=== PATIENT | male | born 1940 | race African-American/Black ===

== ENCOUNTER 2016-12-15 14:25 | Inpatient (IN) | payer MEDICARE, MEDICAID ==
[~2016-12-15] VITALS: Ht 180.3 cm; Wt 81.6 kg
[2016-12-15] MEDS ORDERED: HALOPERIDOL 5 MG TABLET PO PRN (16:15)
[2016-12-15] MEDS ORDERED: ZOLPIDEM TARTRATE 10 MG TABLET PO PRN (16:15)
[2016-12-15] MEDS ORDERED: LORazepam 2 MG TABLET PO PRN (16:15)
[2016-12-15 17:07] VITALS: BP 132/79
[2016-12-16 01:20] VITALS: BP 108/60
[2016-12-16 08:02] LABS: BASOPHILS # (AUTO) 0.02 K/uL (0.00-0.20); BASOPHILS % (AUTO) 0.3 % (0.0-2.0); EOSINOPHILS # (AUTO) 0.09 K/uL (0.00-0.70); EOSINOPHILS % (AUTO) 1.47 % (1.0-6.0); HEMATOCRIT 40.4 % (41-53); HEMOGLOBIN 12.9 g/dL (13.5-17.5); LYMPHOCYTES # (AUTO) 1.8 K/uL (1.0-4.8); LYMPHOCYTES % (AUTO) 28.9 % (22.0-44.0); MEAN CORPUSCULAR HEMOGLOBIN 26.2 pg (26.0-34.0); MEAN CORPUSCULAR HGB CONC 31.9 G/dL (31.0-37.0); MEAN CORPUSCULAR VOLUME 82 fL (80-100); MONOCYTES # (AUTO) 0.6 K/uL (0.1-1.0); MONOCYTES % (AUTO) 9.4 % (2.0-9.0); NEUTROPHILS # (AUTO) 3.8 K/uL (1.8-7.7); PLATELET COUNT (AUTO) 282 K/uL (150-450); RED BLOOD CELL COUNT(AUTO) 4.92 MIL/uL (4.50-5.90); RED CELL DISTRIBUTION WIDTH 16.5 % (11.5-14.5); WHITE BLOOD COUNT (AUTO) 6.4 K/uL (4.5-11.0)
[2016-12-16] MEDS ORDERED: ACETAMINOPHEN 325 MG TABLET PO PRN (08:45)
[2016-12-16] MEDS ORDERED: MAGNESIUM HYDROXIDE SUSPENSION 30 ML UDCUP PO PRN (08:45)
[2016-12-16] MEDS ORDERED: LOPERAMIDE HCL 2 MG CAPSULE PO PRN (08:45)
[2016-12-16] MEDS ORDERED: ONDANSETRON HCL 4 MG TABLET PO PRN (08:45)
[2016-12-16] MEDS ORDERED: ALBUTEROL SULFATE HFA 90 MCG/PUFF 8 GM INHALER IH PRN (08:45)
[2016-12-16] MEDS ORDERED: CloNIDine HCL 0.1 MG TABLET PO PRN (08:45)
[2016-12-16] MEDS ORDERED: MAG HYDROX/AL HYDROX/SIMETH ES 30 ML SUSPENSION UDCUP PO PRN (08:45)
[2016-12-16] MEDS ORDERED: IBUPROFEN 600 MG TABLET PO PRN (08:45)
[2016-12-16] MEDS ORDERED: BACITRACIN 28.4 GM OINTMENT TP PRN (08:45)
[2016-12-16] MEDS ORDERED: PETROLATUM,WHITE 71 GM JELLY TP PRN (08:45)
[2016-12-16 08:53] LABS: ALANINE AMINOTRANSFERASE 22 U/L (12-78); ALBUMIN 3.1 g/dL (3.4-5.0); ANION GAP 7 mmol/L (8-16); ASPARTATE AMINOTRANSFERASE 18 U/L (15-37); BILIRUBIN,TOTAL 0.4 mg/dL (0.1-1.0); CALCIUM, TOTAL 8.9 mg/dL (8.8-10.5); CARBON DIOXIDE 29 mmol/L (22-29); CHLORIDE 106 mmol/L (98-107); CHOL/HDL RATIO 2.9 (4.2-7.3); CREATININE 1.01 mg/dL (0.60-1.30); GLOMERULAR FILTR. RATE CALC > 60 mL/min (>60); POTASSIUM 4.5 mmol/L (3.5-5.1); SODIUM SERUM 142 mmol/L (136-145); THYROID STIMULATING HORMONE 1.32 uIU/mL (0.36-3.74); TOTAL PROTEIN, SERUM 7.1 g/dL (6.4-8.2); UREA NITROGEN, BLOOD 17 mg/dL (7-18)
[2016-12-16 09:01] VITALS: BP 102/69
[2016-12-16] MEDS: OLANZapine 5 MG TABLET PO SCH ×2 (09:36→16:12)
[2016-12-16 16:12] VITALS: BP 108/62
[2016-12-17 00:08] VITALS: BP 109/70
[2016-12-17] MEDS: OLANZapine 5 MG TABLET PO SCH ×2 (08:55→16:46)
[2016-12-17 08:59] VITALS: BP 116/62
[2016-12-17 16:10] VITALS: BP 112/77
[2016-12-18 00:57] VITALS: BP 106/71
[2016-12-18] MEDS ORDERED: OLAN5TAB2 PO (04:52)
== END 2016-12-18 07:15 | disposition home or self-care (01) | DRG 750 ==
LOC: B2S 16:15
PROVIDERS: ADMIT Psychiatry & Neurology Psychiatry; ATTEND Psychiatry & Neurology Psychiatry
DX: F25.0 Schizoaffective disorder, bipolar type (principal); R45.851 Suicidal ideations; R45.850 Homicidal ideations; F41.9 Anxiety disorder, unspecified; K59.00 Constipation, unspecified; M19.90 Unspecified osteoarthritis, unspecified site; Z59.0 Homelessness; Z72.89 Other problems related to lifestyle; Z71.41 Alcohol abuse counseling and surveillance of alcoholic; Z62.819 Personal history of unspecified abuse in childhood; Z91.5 Personal history of self-harm; Z79.899 Other long term (current) drug therapy
CPT/HCPCS: 83036; 84439; 84443

== ENCOUNTER 2017-04-10 15:33 | Inpatient (IN) | payer MEDICARE, MEDICAID ==
[~2017-04-10] VITALS: Ht 180.3 cm; Wt 80.1 kg
[~2017-04-10 15:33] MED LIST: OLAN5TAB2 PO
[2017-04-10 18:32] VITALS: BP 115/74
[2017-04-10] MEDS ORDERED: ZOLPIDEM TARTRATE 10 MG TABLET PO PRN (18:45)
[2017-04-10] MEDS ORDERED: LORazepam 2 MG TABLET PO PRN (18:45)
[2017-04-10] MEDS ORDERED: HALOPERIDOL 5 MG TABLET PO PRN (18:45)
[2017-04-10] MEDS: OLANZapine 5 MG TABLET PO SCH (19:54)
[2017-04-10 20:00] VITALS: BP 106/77
[2017-04-10] MEDS ORDERED: PNEUMOCOCCAL VACCINE POLYVALENT 0.5 ML VIAL [PPSV23] IM ONE (20:15)
[2017-04-11 00:04] VITALS: BP 109/64
[2017-04-11 08:03] LABS: BASOPHILS % (AUTO) 0.3 % (0.0-2.0); EOSINOPHILS % (AUTO) 1.2 % (1.0-6.0); HEMATOCRIT 38.9 % (41-53); HEMOGLOBIN 12.8 g/dL (13.5-17.5); LYMPHOCYTES # (AUTO) 1.8 K/uL (1.0-4.8); LYMPHOCYTES % (AUTO) 29.2 % (22.0-44.0); MEAN CORPUSCULAR HEMOGLOBIN 27.1 pg (26.0-34.0); MEAN CORPUSCULAR HGB CONC 32.8 G/dL (31.0-37.0); MEAN CORPUSCULAR VOLUME 83 fL (80-100); MONOCYTES # (AUTO) 0.7 K/uL (0.1-1.0); MONOCYTES % (AUTO) 11.2 % (2.0-9.0); NEUTROPHILS # (AUTO) 3.6 K/uL (1.8-7.7); NEUTROPHILS % (AUTO) 58.1 % (40.0-70.0); PLATELET COUNT (AUTO) 246 K/uL (150-450); RED BLOOD CELL COUNT(AUTO) 4.71 MIL/uL (4.50-5.90); RED CELL DISTRIBUTION WIDTH 16.1 % (11.5-14.5); WHITE BLOOD COUNT (AUTO) 6.1 K/uL (4.5-11.0)
[2017-04-11] MEDS: OLANZapine 5 MG TABLET PO SCH (08:31)
[2017-04-11 08:32] LABS: ALANINE AMINOTRANSFERASE 19 U/L (12-78); ALBUMIN 3.3 g/dL (3.4-5.0); ANION GAP 6 mmol/L (8-16); ASPARTATE AMINOTRANSFERASE 14 U/L (15-37); BILIRUBIN,TOTAL 0.3 mg/dL (0.1-1.0); CALCIUM, TOTAL 8.6 mg/dL (8.8-10.5); CARBON DIOXIDE 30 mmol/L (22-29); CHLORIDE 107 mmol/L (98-107); CREATININE 0.99 mg/dL (0.60-1.30); GLOMERULAR FILTR. RATE CALC > 60 mL/min (>60); POTASSIUM 4.5 mmol/L (3.5-5.1); SODIUM SERUM 143 mmol/L (136-145); THYROID STIMULATING HORMONE 0.83 uIU/mL (0.36-3.74); TOTAL PROTEIN, SERUM 6.5 g/dL (6.4-8.2); UREA NITROGEN, BLOOD 16 mg/dL (7-18)
[2017-04-11] MEDS ORDERED: PETROLATUM,WHITE 71 GM JELLY TP PRN (08:45)
[2017-04-11] MEDS ORDERED: ONDANSETRON HCL 4 MG TABLET PO PRN (08:45)
[2017-04-11] MEDS ORDERED: CloNIDine HCL 0.1 MG TABLET PO PRN (08:45)
[2017-04-11] MEDS ORDERED: ACETAMINOPHEN 325 MG TABLET PO PRN (08:45)
[2017-04-11] MEDS ORDERED: MAGNESIUM HYDROXIDE SUSPENSION 30 ML UDCUP PO PRN (08:45)
[2017-04-11] MEDS ORDERED: BACITRACIN 28.4 GM OINTMENT TP PRN (08:45)
[2017-04-11] MEDS ORDERED: MAG HYDROX/AL HYDROX/SIMETH ES 30 ML SUSPENSION UDCUP PO PRN (08:45)
[2017-04-11] MEDS ORDERED: ALBUTEROL SULFATE HFA 90 MCG/PUFF 8 GM INHALER IH PRN (08:45)
[2017-04-11] MEDS ORDERED: LOPERAMIDE HCL 2 MG CAPSULE PO PRN (08:45)
[2017-04-11 09:06] VITALS: BP 112/70
[2017-04-11 13:40] VITALS: BP 110/75
[2017-04-11] MEDS: IBUPROFEN 600 MG TABLET PO PRN (13:40)
[2017-04-11 14:40] VITALS: BP 111/72
[2017-04-11 16:31] VITALS: BP 117/70
[2017-04-11] MEDS: OLANZapine 7.5 MG TABLET PO SCH (18:05)
[2017-04-12 01:04] VITALS: BP 118/66
[2017-04-12] MEDS: OLANZapine 7.5 MG TABLET PO SCH ×2 (08:29→16:56)
[2017-04-12 09:31] VITALS: BP 120/70
[2017-04-12] MEDS: IBUPROFEN 600 MG TABLET PO PRN (11:14)
[2017-04-12 16:33] VITALS: BP 98/51
[2017-04-13 01:29] VITALS: BP 105/66
[2017-04-13 08:04] VITALS: BP 122/82
[2017-04-13] MEDS: OLANZapine 7.5 MG TABLET PO SCH ×2 (08:43→16:19)
[2017-04-13 12:39] VITALS: BP 125/78
[2017-04-13] MEDS: IBUPROFEN 600 MG TABLET PO PRN (12:39)
[2017-04-13 16:11] VITALS: BP 118/82
[2017-04-14 06:12] VITALS: BP 131/68
[2017-04-14] MEDS: FERROUS SULFATE 325 MG EC TABLET PO SCH ×2 (06:34→17:49)
[2017-04-14 08:02] VITALS: BP 107/64
[2017-04-14] MEDS: OLANZapine 7.5 MG TABLET PO SCH ×2 (08:19→17:49)
[2017-04-14 16:08] VITALS: BP 117/73
[2017-04-15 05:10] VITALS: BP 104/60
[2017-04-15] MEDS: FERROUS SULFATE 325 MG EC TABLET PO SCH ×2 (06:14→16:35)
[2017-04-15 08:24] VITALS: BP 108/74
[2017-04-15] MEDS: OLANZapine 7.5 MG TABLET PO SCH ×2 (08:24→16:35)
[2017-04-15] MEDS: IBUPROFEN 600 MG TABLET PO PRN ×2 (08:24→16:36)
[2017-04-15] MEDS ORDERED: CHOLECALCIFEROL (VIT D3) 1,000 UNITS TABLET PO SCH (09:00)
[2017-04-15 09:44] VITALS: BP 110/75
[2017-04-15] MEDS ORDERED: FERR-89 PO (13:45)
[2017-04-15] MEDS ORDERED: VITAD1000 PO (13:45)
[2017-04-15 16:23] VITALS: BP 115/89
[2017-04-15 16:25] VITALS: BP 119/75
[2017-04-16 06:27] VITALS: BP 113/53
[2017-04-16] MEDS: FERROUS SULFATE 325 MG EC TABLET PO SCH (06:34)
== END 2017-04-16 07:15 | disposition home or self-care (01) | DRG 750 ==
LOC: B2S 18:39 → EDSTATUS 19:16 → B2S 04-13 21:36
PROVIDERS: ADMIT Psychiatry & Neurology Psychiatry; ATTEND Psychiatry & Neurology Psychiatry
DX: F25.0 Schizoaffective disorder, bipolar type (principal); D64.9 Anemia, unspecified; E55.9 Vitamin D deficiency, unspecified; E83.51 Hypocalcemia; K59.00 Constipation, unspecified; M19.90 Unspecified osteoarthritis, unspecified site; G47.00 Insomnia, unspecified; Z23 Encounter for immunization
CPT/HCPCS: 82306; 84436; 84439; 84443; 90471; Q0162